=== PATIENT | female | born 1995 | race Caucasian/White ===

== ENCOUNTER 2019-03-13 09:02 | Emergency (ER) | payer OTHER ==
[~2019-03-13] VITALS: Ht 154.9 cm; Wt 72.0 kg
[~2019-03-13 09:02] MED LIST: NAPR-985 PO; OMEP20CA16 PO
[2019-03-13 09:07] VITALS: BP 152/67; PULSE 63; RESP 17; Ht 154.9 cm; Wt 72.0 kg
== END 2019-03-13 11:05 | disposition home or self-care (01) ==
LOC: FTE 09:02
DX: R07.89 Other chest pain (principal); R10.13 Epigastric pain
CPT/HCPCS: 71046; 93005; Z7502; Z7610